=== PATIENT | male | born 1995 | race Native Hawaiian/Other Pacific Islander ===

== ENCOUNTER 2022-09-14 21:03 | Emergency (ER) | payer OTHER ==
[~2022-09-14] VITALS: Ht 182.9 cm; Wt 108.9 kg
== END 2022-09-14 22:05 | disposition home or self-care (01) ==
LOC: ED 21:03
PROC: 0HQDXZZ Repair Right Lower Arm Skin, External Approach (ICD-10-PCS; principal; 2022-09-14)
DX: S51.811A Laceration without foreign body of right forearm, initial encounter (principal); W01.118A Fall on same level from slipping, tripping and stumbling with subsequent striking against other sharp object, initial encounter; Y92.89 Other specified places as the place of occurrence of the external cause
CPT/HCPCS: 90471; 90715; 96372; 99283; J0696